=== PATIENT | female | born 1985 | race Caucasian/White ===

== ENCOUNTER 2018-06-22 20:05 | Emergency (ER) | payer MEDICAID, OTHER | END 2018-06-22 20:55 | disposition home or self-care (01) | LOC: FTE 20:05 | DX: H60.501 Unspecified acute noninfective otitis externa, right ear (principal) | CPT/HCPCS: 99283; Z7502 ==

== ENCOUNTER 2018-10-19 09:45 | Emergency (ER) | payer OTHER, MEDICAID | END 2018-10-19 11:39 | disposition home or self-care (01) | LOC: FTE 09:45 | DX: H61.21 Impacted cerumen, right ear (principal) | CPT/HCPCS: 69209; 99283-25 ==

== ENCOUNTER 2019-04-28 13:38 | Emergency (ER) | payer OTHER | END 2019-04-28 15:02 | disposition home or self-care (01) | LOC: FTE 13:38 | DX: H60.501 Unspecified acute noninfective otitis externa, right ear (principal) | CPT/HCPCS: 99283; Z7502 ==